=== PATIENT | male | born 1980 | race Caucasian/White ===

== ENCOUNTER 2020-11-04 05:46 | Inpatient (IN) | payer OTHER, SELFPAY ==
[2020-11-04 06:28] LABS: Hemoglobin 16.6 g/dL (13.5-17.5); Mean Corpuscular HGB CONC 34.4 g/dL (32.0-36.0); Mean Corpuscular Hemoglobin 29.1 pg (27.0-33.0); Mean Corpuscular Volume 84.6 fl (81.2-95.1); Mean Platelet Volume 10.7 fl (7.4-10.4); Platelet Count 345 10x3/uL (150-450); RBC Distribution Width 13.6 % (11.5-14.5); White Blood Cell (WBC) Count 6.9 10x3/uL (3.5-10.5)
[2020-11-04] MEDS ORDERED: Morphine 4 MG/ML VIAL ONE ×3 (06:28→13:46)
[2020-11-04] MEDS ORDERED: Ondansetron PF 4 MG/2 ML Vial ONE ×2 (06:28→10:13)
[2020-11-04] MEDS ORDERED: diphenhydrAMINE 50 MG/ML VIAL ONE (06:31)
[2020-11-04] MEDS ORDERED: methylPREDNISolone Sod Succ/PF 125 MG/2 ML VIAL ONE (06:33)
[2020-11-04 06:44] LABS: ALT (SGPT) 26 U/L (8-55); AST (SGOT) 22 U/L (5-34); Albumin 3.1 g/dL (3.5-5.0); Alkaline Phosphatase 68 U/L (40-110); Anion Gap 17 mmol/L (10-20); BUN (Urea Nitrogen) 31 mg/dL (8.9-20.6); Bilirubin, Total 0.6 mg/dL (0.2-1.2); Calc. Creatinine Clearance 0 mL/min (70-130); Carbon Dioxide 18 mmol/L (22-29); Chloride 100 mmol/L (98-107); Globulin 2.7 g/dL (2.4-3.5); Glucose 137 mg/dL (70-105); Potassium 4.3 mmol/L (3.5-5.1); Protein, Total 5.8 g/dL (6.0-8.3); Sodium 131 mmol/L (136-145)
[2020-11-04] MEDS ORDERED: Famotidine/PF 20 mg/2ml Vial ONE (06:57)
[2020-11-04 07:05] LABS: Lipase Less than 4 U/L (8-78)
[2020-11-04 07:10] LABS: Bilirubin Neg (Negative); Blood, Urine 50 (Negative); Clarity Clear (Clear); Glucose, Urine (Dipstick) Normal (Negative); Ketone, Urine 5 mg/dL (Negative); Leukocyte 25 (Negative); Nitrite Negative (Negative); Protein, Urine (Dipstick) 100 mg/dl (Neg-Trace)
[2020-11-04 07:27] LABS: Bacteria/HPF None Seen HPF (None Seen); Mucous/LPF 1+ LPF (<2+); Squamous Epithelial 0-3 HPF (0-3); WBC/HPF 0-3 HPF (0-3)
[2020-11-04 08:22] LABS: MDiff Complete? YES
[2020-11-04 08:39] LABS: Band 6 % (5-11); Lymphocytes 12 % (21-51); Monocytes 8 % (0-10); Neutrophil 74 % (42-75)
[2020-11-04 08:40] LABS: Platelet Morphology Comment Appears Adequate
[2020-11-04 08:42] LABS: RBC Morphology Normal
[2020-11-04] MEDS ORDERED: Piperacillin/Tazobactam 4.5 GM VIAL ONE (09:06)
[2020-11-04] MEDS ORDERED: Bupivacaine PF 0.5% 30 ML VIAL ONE (09:10)
[2020-11-04] MEDS ORDERED: Ketamine 50 MG/ML (10ML VIAL) ONE (09:41)
[2020-11-04 10:06] LABS: SARS-CoV-2 NAA Rapid Test Not Detected (NotDetected)
[2020-11-04] MEDS ORDERED: Rocuronium Bromide 10 MG/ML (10ML VIAL) ONE (10:13)
[2020-11-04] MEDS ORDERED: Midazolam HCl 2 mg/2 ml Vial ONE (10:13)
[2020-11-04] MEDS ORDERED: Dexamethasone 4 mg/ml Vial ONE (10:13)
[2020-11-04] MEDS ORDERED: Glycopyrrolate 0.2 MG/ML 5 ML SYRINGE ONE (10:13)
[2020-11-04] MEDS ORDERED: Fentanyl 100 MCG/2 ML VIAL ONE (10:13)
[2020-11-04] MEDS ORDERED: Succinylcholine 200 MG/10 ml SYRINGE FS ONE (10:15)
[2020-11-04] MEDS ORDERED: Esmolol 100 MG/10 ML VIAL ONE (10:38)
[2020-11-04] MEDS ORDERED: HYDROmorphone 0.5 MG/0.5 ML SYRINGE ONE (12:04)
[2020-11-04] MEDS ORDERED: SUGAMMADEX SODIUM 500 MG/5 ML VIAL ONE (12:04)
[2020-11-04] MEDS ORDERED: Ketorolac Tromethamine 30 MG/ML VIAL ONE (12:30)
[2020-11-04] MEDS ORDERED: Morphine 10 MG/ML VIAL ONE ×2 (12:32→12:47)
[2020-11-04] MEDS ORDERED: hydrALAZINE 20 MG/ML VIAL SLOW IVP PRN (12:57)
[2020-11-04] MEDS ORDERED: Ondansetron PF 4 MG/2 ML Vial IVP PRN (12:57)
[2020-11-04] MEDS ORDERED: Promethazine HCl 25 MG/ML VIAL IM PRN (12:57)
[2020-11-04] MEDS ORDERED: HYDROmorphone 40 MG/20 ML 10 MG in Sodium Chloride 0.9% 45 ML IV PRN (13:45)
[2020-11-04] MEDS: D5 1/2 NS w/20 mEq KCL 1,000 ML IV SCH ×2 (15:00→22:50)
[2020-11-04 16:15] VITALS: BMI 28.2
[2020-11-04] MEDS ORDERED: Piperacillin/Tazobactam 3.375 GM in Sodium Chloride 0.9% 100 ML IVPB SCH (18:00)
[2020-11-04] MEDS: Ketorolac Tromethamine 30 MG/ML VIAL IVP SCH (18:45)
[2020-11-04] MEDS: Piperacillin/Tazobactam 3.375 GM in Sodium Chloride 0.9% 100 ML IVPB SCH (18:45)
[2020-11-04 22:18] LABS: Hemoglobin 15.3 g/dL (13.5-17.5); Mean Corpuscular HGB CONC 34.7 g/dL (32.0-36.0); Mean Corpuscular Hemoglobin 29.3 pg (27.0-33.0); Mean Corpuscular Volume 84.3 fl (81.2-95.1); Mean Platelet Volume 10.1 fl (7.4-10.4); Platelet Count 348 10x3/uL (150-450); RBC Distribution Width 13.6 % (11.5-14.5); Red Blood Cell (RBC) Count 5.23 10x6/uL (4.32-5.72); White Blood Cell (WBC) Count 11.8 10x3/uL (3.5-10.5)
[2020-11-04 22:19] LABS: ALT (SGPT) 17 U/L (8-55); AST (SGOT) 21 U/L (5-34); Albumin 2.5 g/dL (3.5-5.0); Alkaline Phosphatase 52 U/L (40-110); Anion Gap 12 mmol/L (10-20); BUN (Urea Nitrogen) 30 mg/dL (8.9-20.6); Bilirubin, Total 0.4 mg/dL (0.2-1.2); Calc. Creatinine Clearance 116 mL/min (70-130); Calcium 7.7 mg/dL (7.8-10.44); Carbon Dioxide 20 mmol/L (22-29); Chloride 105 mmol/L (98-107); Globulin 2.6 g/dL (2.4-3.5); Glucose 140 mg/dL (70-105); Potassium 4.4 mmol/L (3.5-5.1); Protein, Total 5.1 g/dL (6.0-8.3); Sodium 133 mmol/L (136-145)
[2020-11-04 22:50] LABS: Band 22 % (5-11); Lymphocytes 4 % (21-51); Monocytes 9 % (0-10); Neutrophil 65 % (42-75)
[2020-11-04] MEDS: Famotidine/PF 20 mg/2ml Vial SLOW IVP SCH (22:50)
[2020-11-04] MEDS: Polyethylene Glycol 3350 17 GM Packet PER TUBE SCH (22:50)
[2020-11-04 22:52] LABS: Dohle Bodies SLIGHT; Vacuoles SLIGHT
[2020-11-04 22:53] LABS: Large Platelets MODERATE; MDiff Complete? YES; Manual Diff?? YES; Platelet Morphology Comment Appears Adequate
[2020-11-04 22:54] LABS: RBC Morphology Normal
[2020-11-04 23:00] LABS: Amphetamine Detected (NotDetected); Barbiturates Screen Not Detected (NotDetected); Benzodiazepine Screen Not Detected (NotDetected); Cocaine Metabolite Screen Not Detected (NotDetected); Methadone Not Detected (NotDetected); Methamphetamine Detected (NotDetected); Opiate Screen Detected (NotDetected); Oxycodone Screen Not Detected (NotDetected); Phencyclidine (PCP) Not Detected (NotDetected); THC/Cannabinoid Screen Detected (NotDetected); Tricyclic Screen Not Detected (NotDetected)
[2020-11-04] MEDS: HYDROcodone/Acetaminophen 10/325 mg Tablet PO PRN (23:59)
[2020-11-05] MEDS: Ketorolac Tromethamine 30 MG/ML VIAL IVP SCH ×4 (00:01→16:37)
[2020-11-05] MEDS: Piperacillin/Tazobactam 3.375 GM in Sodium Chloride 0.9% 100 ML IVPB SCH ×3 (01:47→16:51)
[2020-11-05] MEDS: HYDROmorphone 0.5 MG/0.5 ML SYRINGE SLOW IVP PRN ×2 (02:21→04:55)
[2020-11-05] MEDS: HYDROcodone/Acetaminophen 10/325 mg Tablet PO PRN ×2 (04:45→07:00)
[2020-11-05] MEDS: D5 1/2 NS w/20 mEq KCL 1,000 ML IV SCH ×3 (06:23→16:38)
[2020-11-05 06:28] LABS: Hemoglobin 15.2 g/dL (13.5-17.5); Mean Corpuscular HGB CONC 33.7 g/dL (32.0-36.0); Mean Corpuscular Hemoglobin 28.8 pg (27.0-33.0); Mean Corpuscular Volume 85.4 fl (81.2-95.1); Mean Platelet Volume 10.5 fl (7.4-10.4); Platelet Count 350 10x3/uL (150-450); RBC Distribution Width 14.2 % (11.5-14.5); Red Blood Cell (RBC) Count 5.28 10x6/uL (4.32-5.72); White Blood Cell (WBC) Count 12.2 10x3/uL (3.5-10.5)
[2020-11-05 06:36] LABS: Anion Gap 16 mmol/L (10-20); BUN (Urea Nitrogen) 29 mg/dL (8.9-20.6); Calc. Creatinine Clearance 123 mL/min (70-130); Carbon Dioxide 19 mmol/L (22-29); Chloride 103 mmol/L (98-107); Glucose 131 mg/dL (70-105); Potassium 4.2 mmol/L (3.5-5.1); Sodium 134 mmol/L (136-145)
[2020-11-05 06:56] LABS: MDiff Complete? YES
[2020-11-05 07:47] LABS: Band 18 % (5-11); Lymphocytes 7 % (21-51); Monocytes 2 % (0-10); Neutrophil 69 % (42-75); Reactive Lymphocytes 4 % (0-10)
[2020-11-05 07:49] LABS: Burr Cells SLIGHT = 2-5 cells (100X) (0-1/hpf); Crenated RBC MODERATE= 6-15 cells (100X) (None Seen); Ovalocytes SLIGHT = 2-5 cells (100X) (0-1/hpf); Poikilocytosis MODERATE=16-30 cells (100X) (0-5/hpf)
[2020-11-05 07:50] LABS: Large Platelets MODERATE; Platelet Morphology Comment Appears Adequate
[2020-11-05] MEDS ORDERED: Sodium Chloride 0.9% 1,000 ML IV SCH (08:45)
[2020-11-05] MEDS ORDERED: HYDROmorphone 0.5 MG/0.5 ML SYRINGE SLOW IVP PRN (09:13)
[2020-11-05] MEDS ORDERED: Naloxone HCl 0.4 mg/ml Vial IV SCH (09:15)
[2020-11-05] MEDS ORDERED: Dicyclomine 10 MG CAP PO PRN (09:47)
[2020-11-05] MEDS ORDERED: Methocarbamol 500 MG TAB PO PRN (09:48)
[2020-11-05] MEDS: rOPINIRole HCl 0.25 MG TAB PO PRN (10:17)
[2020-11-05] MEDS: HYDROcodone/Acetaminophen 5/325 mg Tablet PO PRN (10:17)
[2020-11-05] MEDS ORDERED: Nicotine 21 MG PATCH TD PRN (10:32)
[2020-11-05] MEDS: Polyethylene Glycol 3350 17 GM Packet PER TUBE SCH ×2 (12:20→22:03)
[2020-11-05] MEDS: Enoxaparin Sodium 40 MG/0.4 ML SYRINGE SC SCH (12:21)
[2020-11-05] MEDS: Famotidine/PF 20 mg/2ml Vial SLOW IVP SCH ×2 (12:21→22:02)
[2020-11-05] MEDS ORDERED: Pantoprazole 40 MG VIAL IVP SCH (17:00)
[2020-11-06] MEDS: Ketorolac Tromethamine 30 MG/ML VIAL IVP SCH ×4 (00:54→19:26)
[2020-11-06] MEDS: Piperacillin/Tazobactam 3.375 GM in Sodium Chloride 0.9% 100 ML IVPB SCH ×3 (02:00→19:26)
[2020-11-06] MEDS: D5 1/2 NS w/20 mEq KCL 1,000 ML IV SCH ×3 (02:21→16:52)
[2020-11-06] MEDS: Morphine 2 MG/ML VIAL SLOW IVP PRN ×2 (03:24→23:12)
[2020-11-06] MEDS: Famotidine/PF 20 mg/2ml Vial SLOW IVP SCH ×2 (09:13→21:58)
[2020-11-06] MEDS: Pantoprazole 40 MG VIAL IVP SCH (09:13)
[2020-11-06] MEDS: Enoxaparin Sodium 40 MG/0.4 ML SYRINGE SC SCH (09:13)
[2020-11-06] MEDS: Polyethylene Glycol 3350 17 GM Packet PER TUBE SCH ×2 (09:23→21:58)
[2020-11-07] MEDS: Ketorolac Tromethamine 30 MG/ML VIAL IVP SCH ×4 (00:38→17:58)
[2020-11-07] MEDS: Piperacillin/Tazobactam 3.375 GM in Sodium Chloride 0.9% 100 ML IVPB SCH ×2 (01:57→08:50)
[2020-11-07] MEDS: D5 1/2 NS w/20 mEq KCL 1,000 ML IV SCH ×4 (02:35→17:58)
[2020-11-07 04:41] LABS: #Eosinphils 0.2 10x3/uL (0.0-0.5); #Monocytes 1.5 10x3/uL (0.0-1.1); #Neutrophils 7.5 10x3/uL (1.5-8.4); %Basophils 0.2 % (0.0-2.0); %Eosinophils 1.4 % (0.0-6.0); %Lymphocytes 16.8 % (18.0-47.0); %Monocytes 13.4 % (0.0-10.0); %Neutrophils 67.4 % (40.0-75.0); Hemoglobin 13.5 g/dL (13.5-17.5); Mean Corpuscular HGB CONC 33.8 g/dL (32.0-36.0); Mean Corpuscular Hemoglobin 28.7 pg (27.0-33.0); Mean Corpuscular Volume 84.7 fl (81.2-95.1); Mean Platelet Volume 9.5 fl (7.4-10.4); Platelet Count 332 10x3/uL (150-450); RBC Distribution Width 13.8 % (11.5-14.5); Red Blood Cell (RBC) Count 4.71 10x6/uL (4.32-5.72); White Blood Cell (WBC) Count 11.1 10x3/uL (3.5-10.5)
[2020-11-07 05:19] LABS: Anion Gap 13 mmol/L (10-20); BUN (Urea Nitrogen) 17 mg/dL (8.9-20.6); Calc. Creatinine Clearance 198 mL/min (70-130); Carbon Dioxide 17 mmol/L (22-29); Glucose 102 mg/dL (70-105); Potassium 3.7 mmol/L (3.5-5.1); Sodium 137 mmol/L (136-145)
[2020-11-07 05:35] LABS: Calcium 7.9 mg/dL (7.8-10.44); Chloride 111 mmol/L (98-107)
[2020-11-07] MEDS: Enoxaparin Sodium 40 MG/0.4 ML SYRINGE SC SCH (08:50)
[2020-11-07] MEDS: Pantoprazole 40 MG VIAL IVP SCH (08:50)
[2020-11-07] MEDS: Famotidine/PF 20 mg/2ml Vial SLOW IVP SCH ×2 (08:50→20:55)
[2020-11-07] MEDS: Polyethylene Glycol 3350 17 GM Packet PER TUBE SCH ×2 (08:50→20:54)
[2020-11-07] MEDS: Acetaminophen 500 MG TAB PO SCH ×3 (10:53→20:55)
[2020-11-07] MEDS: HYDROcodone/Acetaminophen 5/325 mg Tablet PO PRN ×2 (10:53→22:27)
[2020-11-07] MEDS: metroNIDAZOLE 500 MG in Premix Bag 1 BAG IVPB SCH ×2 (14:50→23:00)
[2020-11-08] MEDS: cloNIDine 0.1 MG TAB PO PRN (04:00)
[2020-11-08] MEDS: Acetaminophen 500 MG TAB PO SCH ×4 (04:17→22:27)
[2020-11-08] MEDS: metroNIDAZOLE 500 MG in Premix Bag 1 BAG IVPB SCH (06:03)
[2020-11-08] MEDS: Enoxaparin Sodium 40 MG/0.4 ML SYRINGE SC SCH (09:32)
[2020-11-08] MEDS: Polyethylene Glycol 3350 17 GM Packet PER TUBE SCH ×2 (09:32→22:29)
[2020-11-08] MEDS: Famotidine/PF 20 mg/2ml Vial SLOW IVP SCH (09:32)
[2020-11-08] MEDS: Pantoprazole 40 MG VIAL IVP SCH (09:32)
[2020-11-08] MEDS: HYDROcodone/Acetaminophen 5/325 mg Tablet PO PRN ×3 (09:33→22:37)
[2020-11-08] MEDS: D5 1/2 NS w/20 mEq KCL 1,000 ML IV SCH (09:42)
[2020-11-08] MEDS ORDERED: Amlodipine 5 MG TAB PO SCH (15:15)
[2020-11-08] MEDS: Methylnaltrexone 12 MG/0.6 ML VIAL SC SCH (16:09)
[2020-11-08] MEDS: metroNIDAZOLE 500 MG TAB PO SCH ×2 (16:09→22:27)
[2020-11-09] MEDS: cloNIDine 0.1 MG TAB PO PRN (00:39)
[2020-11-09] MEDS: rOPINIRole HCl 0.25 MG TAB PO PRN (00:58)
[2020-11-09] MEDS: Acetaminophen 500 MG TAB PO SCH ×4 (04:41→21:29)
[2020-11-09 06:26] LABS: ALT (SGPT) 42 U/L (8-55); AST (SGOT) 24 U/L (5-34); Albumin 2.8 g/dL (3.5-5.0); Alkaline Phosphatase 63 U/L (40-110); Anion Gap 13 mmol/L (10-20); BUN (Urea Nitrogen) 15 mg/dL (8.9-20.6); Bilirubin, Total 0.5 mg/dL (0.2-1.2); Calc. Creatinine Clearance 185 mL/min (70-130); Calcium 8.3 mg/dL (7.8-10.44); Carbon Dioxide 19 mmol/L (22-29); Chloride 108 mmol/L (98-107); Globulin 2.6 g/dL (2.4-3.5); Glucose 125 mg/dL (70-105); Potassium 3.6 mmol/L (3.5-5.1); Protein, Total 5.4 g/dL (6.0-8.3); Sodium 136 mmol/L (136-145)
[2020-11-09] MEDS ORDERED: Tamsulosin HCl 0.4 MG CAP PO SCH (09:15)
[2020-11-09] MEDS: metroNIDAZOLE 500 MG TAB PO SCH ×3 (09:53→21:29)
[2020-11-09] MEDS: HYDROcodone/Acetaminophen 5/325 mg Tablet PO PRN ×3 (09:53→21:30)
[2020-11-09] MEDS: Tamsulosin HCl 0.4 MG CAP PO SCH (09:55)
[2020-11-09] MEDS: Amlodipine 5 MG TAB PO SCH (09:55)
[2020-11-09] MEDS: Enoxaparin Sodium 40 MG/0.4 ML SYRINGE SC SCH (09:55)
[2020-11-09] MEDS: Methylnaltrexone 12 MG/0.6 ML VIAL SC SCH (15:58)
[2020-11-09] MEDS: Polyethylene Glycol 3350 17 GM Packet PER TUBE SCH ×2 (15:58→21:30)
[2020-11-10] MEDS: rOPINIRole HCl 0.25 MG TAB PO PRN (01:08)
[2020-11-10] MEDS: cloNIDine 0.1 MG TAB PO PRN (04:05)
[2020-11-10] MEDS: Acetaminophen 500 MG TAB PO SCH ×2 (04:19→10:26)
[2020-11-10 06:16] LABS: ALT (SGPT) 47 U/L (8-55); AST (SGOT) 28 U/L (5-34); Albumin 3.1 g/dL (3.5-5.0); Alkaline Phosphatase 71 U/L (40-110); Anion Gap 13 mmol/L (10-20); BUN (Urea Nitrogen) 14 mg/dL (8.9-20.6); Bilirubin, Total 0.6 mg/dL (0.2-1.2); Calc. Creatinine Clearance 182 mL/min (70-130); Calcium 8.4 mg/dL (7.8-10.44); Carbon Dioxide 18 mmol/L (22-29); Chloride 108 mmol/L (98-107); Globulin 2.3 g/dL (2.4-3.5); Glucose 108 mg/dL (70-105); Potassium 3.9 mmol/L (3.5-5.1); Protein, Total 5.4 g/dL (6.0-8.3); Sodium 135 mmol/L (136-145)
[2020-11-10] MEDS: Amlodipine 5 MG TAB PO SCH (10:25)
[2020-11-10] MEDS: metroNIDAZOLE 500 MG TAB PO SCH (10:25)
[2020-11-10] MEDS: HYDROcodone/Acetaminophen 5/325 mg Tablet PO PRN (10:25)
[2020-11-10] MEDS: Enoxaparin Sodium 40 MG/0.4 ML SYRINGE SC SCH (10:26)
[2020-11-10] MEDS: Tamsulosin HCl 0.4 MG CAP PO SCH (10:26)
[2020-11-10] MEDS: Polyethylene Glycol 3350 17 GM Packet PER TUBE SCH (10:26)
[2020-11-10 12:08] VITALS: BP 149/80; TEMP 98.8
[2020-11-10] MEDS ORDERED: hydrOXYzine Pamoate 25 mg Capsule PO SCH (15:30)
== END 2020-11-10 16:26 | disposition home or self-care (01) | DRG 853 ==
LOC: CSHERS 05:46 → CSHTELE 15:11
PROVIDERS: ADMIT Surgery; ATTEND Surgery
PROC: 0DBN4ZZ Excision of Sigmoid Colon, Percutaneous Endoscopic Approach (ICD-10-PCS; principal; 2020-11-04)
PROC: 0D1N4Z4 Bypass Sigmoid Colon to Cutaneous, Percutaneous Endoscopic Approach (ICD-10-PCS; 2020-11-04)
PROC: 0DBB4ZZ Excision of Ileum, Percutaneous Endoscopic Approach (ICD-10-PCS; 2020-11-04)
PROC: 0WQF0ZZ Repair Abdominal Wall, Open Approach (ICD-10-PCS; 2020-11-04)
DX: A41.9 Sepsis, unspecified organism (principal); K63.1 Perforation of intestine (nontraumatic); R65.21 Severe sepsis with septic shock; K52.89 Other specified noninfective gastroenteritis and colitis; Q43.0 Meckel's diverticulum (displaced) (hypertrophic); K66.9 Disorder of peritoneum, unspecified; K42.9 Umbilical hernia without obstruction or gangrene; R33.9 Retention of urine, unspecified; F19.10 Other psychoactive substance abuse, uncomplicated; I10 Essential (primary) hypertension; F17.210 Nicotine dependence, cigarettes, uncomplicated; Z20.822 Contact with and (suspected) exposure to COVID-19; G25.81 Restless legs syndrome
CPT/HCPCS: 36415; 36416; 70450; 71045; 74177; 80048; 80053; 80306; 81003; 81015; 83690; 84484; 85025; 88307; 93005; 93010; 94760; 96365; 96375; 96376; C9113; J0360; J1100; J1170; J1200; J1650; J1885; J2212; J2250; J2270; J2310; J2405; J2543; J2930; J3010; J3480; J3490; S0020; S0028; U0002

== ENCOUNTER 2021-09-14 11:57 | Emergency (ER) | payer BC, SELFPAY ==
[2021-09-14] MEDS ORDERED: Midazolam HCl 10 mg/2 ml Vial ONE (12:10)
[2021-09-14] MEDS ORDERED: Ziprasidone 20 MG VIAL ONE (12:32)
[2021-09-14] MEDS ORDERED: Sterile Water 10 ML ONE (12:32)
[2021-09-14 14:32] LABS: Bilirubin Neg (Negative); Blood, Urine 10 (Negative); Clarity Clear (Clear); Glucose, Urine (Dipstick) Normal (Negative); Ketone, Urine Negative (Negative); Leukocyte Negative (Negative); Nitrite Negative (Negative); Protein, Urine (Dipstick) Negative (Neg-Trace); Urobilinogen Normal mg/dL (Less than 2)
[2021-09-14 14:44] LABS: Bacteria/HPF None Seen HPF (None Seen); RBC/HPF 0-3 HPF (0-3); Squamous Epithelial 0-3 HPF (0-3); WBC/HPF 0-3 HPF (0-3)
[2021-09-14 14:56] LABS: Amphetamine Detected (NotDetected); Barbiturates Screen Not Detected (NotDetected); Benzodiazepine Screen Not Detected (NotDetected); Cocaine Metabolite Screen Not Detected (NotDetected); Methadone Not Detected (NotDetected); Methamphetamine Detected (NotDetected); Opiate Screen Detected (NotDetected); Oxycodone Screen Not Detected (NotDetected); Phencyclidine (PCP) Not Detected (NotDetected); THC/Cannabinoid Screen Detected (NotDetected); Tricyclic Screen Not Detected (NotDetected)
== END 2021-09-14 16:38 | disposition home or self-care (01) ==
LOC: CSHERS 11:57
DX: F11.10 Opioid abuse, uncomplicated (principal); F15.10 Other stimulant abuse, uncomplicated; I10 Essential (primary) hypertension
CPT/HCPCS: 80306; 81003; 81015; 96372; 96374; J2250; J3486

== ENCOUNTER 2022-09-18 04:55 | Emergency (ER) | payer BC | END 2022-09-18 06:28 | disposition left against medical advice (07) | LOC: CSHERS 04:55 | DX: M79.662 Pain in left lower leg (principal); I10 Essential (primary) hypertension | CPT/HCPCS: 99283 ==

== ENCOUNTER 2023-03-16 13:13 | Outpatient (CLI) | payer BC | END 2023-03-16 13:14 | disposition home or self-care (01) | LOC: CSHWCC 13:13 | PROVIDERS: ATTEND Physician Assistant | DX: I87.313 Chronic venous hypertension (idiopathic) with ulcer of bilateral lower extremity (principal); L97.919 Non-pressure chronic ulcer of unspecified part of right lower leg with unspecified severity; L97.929 Non-pressure chronic ulcer of unspecified part of left lower leg with unspecified severity; Z71.6 Tobacco abuse counseling | CPT/HCPCS: 29581; 87070; 87077; 87186; 87205; 99213; G0463 ==

== ENCOUNTER 2023-03-18 11:27 | Outpatient (CLI) | payer BC | END 2023-03-18 11:28 | disposition home or self-care (01) | LOC: CSHWCC 11:27 | PROVIDERS: ATTEND Preventive Medicine Undersea and Hyperbaric Medicine | DX: I87.313 Chronic venous hypertension (idiopathic) with ulcer of bilateral lower extremity (principal); L97.919 Non-pressure chronic ulcer of unspecified part of right lower leg with unspecified severity; L97.929 Non-pressure chronic ulcer of unspecified part of left lower leg with unspecified severity; Z71.6 Tobacco abuse counseling | CPT/HCPCS: 29581 ==

== ENCOUNTER 2023-03-23 11:42 | Outpatient (CLI) | payer BC | END 2023-03-23 11:43 | disposition home or self-care (01) | LOC: CSHWCC 11:42 | PROVIDERS: ATTEND Preventive Medicine Undersea and Hyperbaric Medicine | DX: I87.313 Chronic venous hypertension (idiopathic) with ulcer of bilateral lower extremity (principal); L97.919 Non-pressure chronic ulcer of unspecified part of right lower leg with unspecified severity; L97.929 Non-pressure chronic ulcer of unspecified part of left lower leg with unspecified severity; Z71.6 Tobacco abuse counseling | CPT/HCPCS: 29581 ==

== ENCOUNTER 2023-04-07 16:17 | Outpatient (CLI) | payer BC, SELFPAY | END 2023-04-07 16:18 | disposition home or self-care (01) | LOC: CSHWCC 16:17 | PROVIDERS: ATTEND Nurse Practitioner Family | DX: I87.313 Chronic venous hypertension (idiopathic) with ulcer of bilateral lower extremity (principal); Z71.6 Tobacco abuse counseling | CPT/HCPCS: 97597 ==

== ENCOUNTER 2023-04-25 13:02 | Outpatient (CLI) | payer SELFPAY | END 2023-04-25 13:03 | disposition home or self-care (01) | LOC: CSHWCC 13:02 | PROVIDERS: ATTEND Nurse Practitioner Family | DX: I87.313 Chronic venous hypertension (idiopathic) with ulcer of bilateral lower extremity (principal); L97.312 Non-pressure chronic ulcer of right ankle with fat layer exposed; L97.222 Non-pressure chronic ulcer of left calf with fat layer exposed; L97.322 Non-pressure chronic ulcer of left ankle with fat layer exposed; Z71.6 Tobacco abuse counseling | CPT/HCPCS: 11042; 29581 ==

== ENCOUNTER 2024-01-14 21:12 | Inpatient (IN) | payer SELFPAY ==
[2024-01-14] MEDS ORDERED: Morphine 4 MG/ML VIAL ONE (21:19)
[2024-01-14 21:53] LABS: #Eosinophils 0.26 10x3/uL (0.0-0.5); #Monocytes 1.11 10x3/uL (0.0-1.1); #Neutrophils 7.24 10x3/uL (1.5-8.4); %Basophils 0.8 % (0.0-2.0); %Lymphocytes 31.7 % (18.0-47.0); %Monocytes 8.7 % (0.0-10.0); %Neutrophils 56.6 % (40.0-75.0); Hemoglobin 14.7 g/dL (13.5-17.5); Mean Corpuscular Hemoglobin 28.8 pg (27.0-33.0); Mean Corpuscular Volume 82.2 fL (81.2-95.1); Mean Platelet Volume 9.7 fL (7.4-10.4); Platelet Count 432 10x3/uL (150-450); RBC Distribution Width 13.5 % (11.5-14.5); Red Blood Cell (RBC) Count 5.11 10x6/uL (4.32-5.72); White Blood Cell (WBC) Count 12.8 10x3/uL (3.5-10.5)
[2024-01-14 22:03] LABS: ALT (SGPT) 36 U/L (8-55); AST (SGOT) 19 U/L (5-34); Albumin 3.9 g/dL (3.5-5.0); Alkaline Phosphatase 97 U/L (40-110); Anion Gap 15 mmol/L (10-20); BUN (Urea Nitrogen) 7 mg/dL (8.9-20.6); Bilirubin, Total 0.3 mg/dL (0.2-1.2); Calc. Creatinine Clearance 0 mL/min (70-130); Calcium 9.5 mg/dL (7.8-10.44); Carbon Dioxide 23 mmol/L (22-29); Chloride 106 mmol/L (98-107); Estimated GFR 112; Globulin 2.9 g/dL (2.4-3.5); Glucose 115 mg/dL (70-105); Lipase 41 U/L (8-78); Potassium 3.6 mmol/L (3.5-5.1); Protein, Total 6.8 g/dL (6.0-8.3); Sodium 140 mmol/L (136-145)
[2024-01-14] MEDS ORDERED: Ondansetron PF 4 MG/2 ML Vial IVP PRN (23:52)
[2024-01-15] MEDS ORDERED: Morphine 4 MG/ML VIAL ONE (00:35)
[2024-01-15 01:51] VITALS: BMI 26.6
[2024-01-15] MEDS: Lactated Ringer's 1,000 ML IV SCH (01:54)
[2024-01-15] MEDS: hydrALAZINE 20 MG/ML VIAL SLOW IVP PRN (01:55)
[2024-01-15] MEDS: Pantoprazole 40 MG VIAL IVP SCH ×2 (01:55→09:21)
[2024-01-15 03:20] LABS: #Basophils 0.09 10x3/uL (0.0-0.2); #Eosinophils 0.37 10x3/uL (0.0-0.5); #Monocytes 0.94 10x3/uL (0.0-1.1); #Neutrophils 5.77 10x3/uL (1.5-8.4); %Basophils 0.8 % (0.0-2.0); %Eosinophils 3.3 % (0.0-6.0); %Lymphocytes 36.5 % (18.0-47.0); %Monocytes 8.3 % (0.0-10.0); %Neutrophils 50.9 % (40.0-75.0); Hematocrit 41.9 % (38.8-50.0); Hemoglobin 14.2 g/dL (13.5-17.5); Mean Corpuscular HGB CONC 33.9 g/dL (32.0-36.0); Mean Corpuscular Hemoglobin 28.1 pg (27.0-33.0); Mean Platelet Volume 9.7 fL (7.4-10.4); Platelet Count 382 10x3/uL (150-450); RBC Distribution Width 13.6 % (11.5-14.5); Red Blood Cell (RBC) Count 5.05 10x6/uL (4.32-5.72); White Blood Cell (WBC) Count 11.3 10x3/uL (3.5-10.5)
[2024-01-15] MEDS: Morphine 2 MG/ML VIAL SLOW IVP PRN (03:41)
[2024-01-15 03:52] LABS: Anion Gap 14 mmol/L (10-20); BUN (Urea Nitrogen) 6 mg/dL (8.9-20.6); Calc. Creatinine Clearance 169 mL/min (70-130); Calcium 8.9 mg/dL (7.8-10.44); Carbon Dioxide 22 mmol/L (22-29); Chloride 109 mmol/L (98-107); Estimated GFR 114; Glucose 95 mg/dL (70-105); Potassium 3.4 mmol/L (3.5-5.1); Sodium 142 mmol/L (136-145)
[2024-01-15 05:26] LABS: Bilirubin Neg (Negative); Blood, Urine Negative (Negative); Glucose, Urine (Dipstick) Normal (Negative); Ketone, Urine Negative (Negative); Leukocyte Negative (Negative); Nitrite Negative (Negative); Protein, Urine (Dipstick) Negative (Neg-Trace); Urobilinogen Normal mg/dL (Less than 2)
[2024-01-15 05:33] LABS: Clarity Clear (Clear)
[2024-01-15 05:37] LABS: Bacteria/HPF Rare-Few HPF (None Seen); RBC/HPF 0-3 HPF (0-3); Squamous Epithelial 0-3 HPF (0-3); WBC/HPF 0-3 HPF (0-3)
[2024-01-15] MEDS: Potassium Chloride 20 MEQ in Premix 1 BAG IVPB SCH (06:45)
[2024-01-15] MEDS: Ketorolac Tromethamine 30 MG (1 mL) VIAL IVP PRN (07:07)
[2024-01-15] MEDS: Enoxaparin 40 MG (0.4 mL) SYRINGE SC SCH (09:21)
[2024-01-15 14:30] VITALS: BP 138/90; TEMP 97.9
== END 2024-01-15 18:30 | DRG 389 ==
LOC: CSHERS 21:12 → CSHTELE 23:52
PROVIDERS: ADMIT Student in an Organized Health Care Education/Training Program; ATTEND Internal Medicine
DX: K91.30 Postprocedural intestinal obstruction, unspecified as to partial versus complete (principal); L97.819 Non-pressure chronic ulcer of other part of right lower leg with unspecified severity; N13.30 Unspecified hydronephrosis; I16.0 Hypertensive urgency; L98.499 Non-pressure chronic ulcer of skin of other sites with unspecified severity; K31.89 Other diseases of stomach and duodenum; D72.829 Elevated white blood cell count, unspecified; Z93.3 Colostomy status; Z90.49 Acquired absence of other specified parts of digestive tract; Z91.148 Patient's other noncompliance with medication regimen for other reason; F15.10 Other stimulant abuse, uncomplicated; K80.20 Calculus of gallbladder without cholecystitis without obstruction; N20.0 Calculus of kidney
CPT/HCPCS: 36415; 71045; 74177; 80048; 80053; 81001; 83605; 83690; 84443; 85025; 96374; 96376; J0360; J1650; J1885; J2272; J2470; J3480; J7120